=== PATIENT | male | born 1970 | race Caucasian/White ===

== ENCOUNTER 2019-08-25 11:31 | Emergency (ER) | payer BC ==
[2019-08-25 11:36] VITALS: BP 145/92
[2019-08-25] MEDS ORDERED: KETOROLAC TROMETHAMINE 60 MG/2 ML SDV IM ONE (11:44)
--- NOTE | 2019-08-25 12:21 | ER Document Report ---
HPI - HPI Time Seen by Provider: 08/25/19 11:40 Pain Level: 4 Notes: 48-year-old male patient presented to the emergency department with chief complaint of right shoulder injury. Patient reports 2 days ago he fell from a standing position landing on his right shoulder. He states pain has been worsening since the fall. Pain is located on the anterior portion of the shoulder. He denies any history of previous injury to the shoulder. Does not recall feeling a pop or a tear. He has not taken any pain medications today. - CONSTITUTIONAL Constitutional: DENIES: Fever, Chills - REPRODUCTIVE Reproductive: DENIES: : - MUSCULOSKELETAL Musculoskeletal: REPORTS: Extremity pain - rt shoulder Past Medical History - General Information source: Patient - Social History Smoking Status: Never Smoker Chew tobacco use (# tins/day): No Frequency of alcohol use: Social Drug Abuse: None Family History: Reviewed & Not Pertinent Patient has homicidal ideation: No - Past Medical History Cardiac Medical History: Reports: Hx Hypertension Pulmonary Medical History: Denies: Hx Tuberculosis Endocrine Medical History: Reports: Hx Diabetes Mellitus Type 2 - diet management Past Surgical History: Reports: Hx Orthopedic Surgery - rt knee. Denies: Hx Appendectomy, Hx Bowel Surgery, Hx Cholecystectomy, Hx Coronary Artery Bypass Graft, Hx Gastric Bypass Surgery, Hx Herniorrhaphy, Hx Pacemaker, Hx Tonsille ctomy - Immunizations Hx Diphtheria, Pertussis, Tetanus Vaccination: No Vertical Provider Document - CONSTITUTIONAL Notes: PHYSICAL EXAMINATION: GENERAL: Well-appearing, well-nourished and in no acute distress. HEAD: Atraumatic, normocephalic. EYES: Pupils equal round extraocular movements intact, conjunctiva are normal. ENT: Nares patent NECK: Normal range of motion LUNGS: No respiratory distress Musculoskeletal: Slightly limited range of motion to right shoulder, tenderness to palpation to anterior right shoulder. No crepitus or deformity on palpation. No obvious dislocation. Strong radial pulse, cap refill less than 3 seconds. NEUROLOGICAL: Normal speech, normal gait. PSYCH: Normal mood, normal affect. SKIN: Warm, Dry, normal turgor, no rashes or lesions noted. Course - Re-evaluation Re-evalutation: Shoulder X-Ray 08/25/19 11:43 IMPRESSION: 1. No acute fracture or dislocation of the right shoulder. 2. Osteoarthrosis of the AC joint. - Vital Signs Vital signs: Temp Pulse Resp BP Pulse Ox 98.0 F 71 18 145/92 H 98 08/25/19 11:41 08/25/19 11:35 08/25/19 11:35 08/25/19 11:35 08/25/19 11:35 Procedures - Immobilization r SHOULDER Pre-Proc Neuro Vasc Exam: Normal Immobilizer type: Sling Performed by: PCT Post-Proc Neuro Vasc Exam: Normal Discharge - Discharge Clinical Impression: Right shoulder pain Qualifiers: Chronicity: acute Qualified Code(s): M25.511 - Pain in right shoulder Condition: Stable Disposition: HOME, SELF-CARE Additional Instructions: Shoulder Injury You have injured your shoulder. This usually results from stretching or tearing of the tendons during trauma. Time and protection are required in order to heal properly. Many injuries are quite disabling, and should be taken seriously. Initial treatment includes cold packs and a sling to rest the shoulder. The physician has assessed the seriousness of your injury, and has outlined a treatment plan. Understand that this treatment may change, depending on how you progress. If a re-examination was recommended, it is important that you follow up as instructed. Some shoulder injuries (such as partial tear of the rotator cuff) are only suspected after you've failed to improve. Call us if there's severe pain, numbness, or loss of function. The x-ray of your shoulder did not show any fracture or dislocation. Please take ibuprofen 600 mg every 6 hours. This will help with pain and inflammation. You can purchase this [id number]. If your pain does not improve over the next 3 to 5 days please call and schedule an appointment with orthopedics for a follow-up. Their phone number is below. Referrals: DEE GALARZA MD [ACTIVE STAFF] - Follow up as needed JARROD SHEPPARD JR, [ACTIVE PROVISIONAL STAFF] - Follow up as needed
--- NOTE | 2019-08-25 12:28 | RADIOLOGY REPORT (SQ) ---
EXAM DESCRIPTION: SHOULDER RIGHT 2 OR MORE VIEWS IMAGES COMPLETED DATE/TIME: 08/25/2019 12:06 pm REASON FOR STUDY: fall injury COMPARISON: None. NUMBER OF VIEWS: Three views. TECHNIQUE: Internal rotation, external rotation, and Y view images acquired of the right shoulder. LIMITATIONS: None. FINDINGS: MINERALIZATION: Normal. BONES: No acute fracture. JOINTS: Osteoarthrosis of the AC joint. There is no dislocation. VISUALIZED LUNGS AND RIBS: No pneumothorax or rib fracture. SOFT TISSUES: No soft tissue swelling, subcutaneous emphysema or radiopaque foreign body. OTHER: No other finding. IMPRESSION: 1. No acute fracture or dislocation of the right shoulder. 2. Osteoarthrosis of the AC joint. TECHNICAL DOCUMENTATION: JOB ID: [id number] 2010 [employer]- All Rights Reserved Reading location - IP/workstation name: [email or web address]
== END 2019-08-25 12:39 | disposition home or self-care (01) ==
LOC: ER 11:31
DX: M25.511 Pain in right shoulder (principal); W18.30XA Fall on same level, unspecified, initial encounter; E11.9 Type 2 diabetes mellitus without complications; I10 Essential (primary) hypertension
CPT/HCPCS: 99283; 96372; 82962; 73030; J1885